=== PATIENT | male | born 1995 | race Caucasian/White ===

== ENCOUNTER → 2019-07-12 | Outpatient (CLI) | payer OTHER ==
[~2019-07-12] MED LIST: IBUPROFEN 800800 MG PO; MULTI VITAMIN1 EACH; NOHOMEMEDICATIONS; NORCO 5-325 TA1 EACH
== END ==
LOC: M.CT 07:58
DX: R10.10 Upper abdominal pain, unspecified (principal)

== ENCOUNTER → 2019-07-16 | Outpatient (CLI) | payer OTHER | LOC: M.LAB 12:23 | PROVIDERS: ATTEND Internal Medicine Gastroenterology | DX: Z01.812 Encounter for preprocedural laboratory examination (principal); R10.13 Epigastric pain ==